=== PATIENT | female | born 1980 | race Caucasian/White ===

== ENCOUNTER 2016-10-14 14:06 | Emergency (ER) | payer SELFPAY ==
[2016-10-14 15:07] VITALS: BP 119/64; PULSE 96; RESP 18; TEMP 98.4
[2016-10-14] MEDS ORDERED: HYDROcodone/APAP 5-325MG 1 EACH TAB PO STA (15:45)
--- NOTE | 2016-10-14 15:50 | ED ---
General Adult HPI - General Chief complaint: Back Pain/Injury Stated complaint: back and hand pain/injury Time Seen by Provider: 10/14/16 15:01 Source: patient, RN notes reviewed Mode of arrival: ambulatory Limitations: no limitations - History of Present Illness Initial comments: This is a 36-year-old female who presents with left-sided lower back pain and left hand pain. Patient states last night she was moving a dresser and when she bent over she felt a pain in her lower back. Patient states this caused her to drop the dresser onto her left hand. Patient reports increased swelling to the left hand and wrist and pain with movement. Patient denies any numbness/ tingling or weakness to the left hand or to bilateral lower extremities. Patient denies any change in bowel or bladder function or loss of sensation to the saddle area. Patient is able to ambulate. Patient states she's been taking Motrin for the pain but this has not helped. Patient denies any chance of being . Patient denies any recent fever, chills, shortness breath, chest pain, abdominal pain, nausea/vomiting/diarrhea, hematuria, headache, or visual changes, or any other complaints. - Related Data Previous Rx's Medication Instructions Recorded HYDROcodone/APAP 5-325MG [[place] 1 tab PO Q6HR #12 tab 10/14/16 5-325] Allergies Allergy/AdvReac Type Severity Reaction Status Date / Time sulfamethoxazole Allergy Swelling Verified 10/14/16 15:12 [From Bactrim] trimethoprim [From Bactrim] Allergy Swelling Verified 10/14/16 15:12 acetaminophen AdvReac SKIN FEELS Verified 10/14/16 15:12 [From Tylenol-Codeine #3] LIKE IT IS ON FIRE codeine AdvReac SKIN FEELS Verified 10/14/16 15:12 [From Tylenol-Codeine #3] LIKE IT IS ON FIRE tramadol AdvReac Nausea & Verified 10/14/16 15:12 Vomiting Review of Systems ROS Statement: Those systems with pertinent positive or pertinent negative responses have been documented in the HPI. ROS Other: All systems not noted in ROS Statement are negative. Past Medical History Past Medical History: No Reported History History of Any Multi-Drug Resistant Organisms: None Reported Past Surgical History: Tubal Ligation Past Psychological History: No Psychological Hx Reported Smoking Status: Never smoker Past Alcohol Use History: None Reported Past Drug Use History: None Reported General Exam - General Exam Comments Initial Comments: General: The patient is awake and alert, in no distress, and does not appear acutely ill. Neck: The neck is supple, there is no tenderness or JVD. Cardiovascular: There is a regular rate and rhythm. No murmur, rub or gallop is appreciated. Respiratory: Lungs are clear to auscultation, respirations are non-labored, breath sounds are equal. No wheezes, stridor, rales, or rhonchi. Musculoskeletal: There is tenderness to palpation over the left side paraspinal muscles of the lumbar spine, there is tenderness to palpation to the radial aspect of the left wrist and to the medial volar aspect of the left wrist. Patient also has tenderness over the first MCP joint of the left hand. Patient has localized swelling and ecchymosis to the radial aspect of the left wrist and left hand. Patient has tenderness to the anatomical snuffbox of the left wrist. Patient has full range of motion, strength 5/5 in Sensation intact. Radial pulses are 2+ bilaterally and capillary refill is normal at less than 2 seconds. Neurological: A&O x 3. CN II-XII intact, There are no obvious motor or sensory deficits. Coordination appears grossly intact. Speech is normal. Skin: There is swelling and ecchymosis to the radial aspect of the left wrist and left hand. Skin is warm and dry and no rashes or lesions are noted. Psychiatric: Normal mood and affect. Limitations: no limitations Course Vital Signs 10/14/16 15:00 Temperature 98.4 F Pulse Rate 96 Respiratory 18 Rate Blood Pressure 119/64 O2 Sat by Pulse 98 Oximetry Medical Decision Making - Medical Decision Making Physical 36-year-old female presents with left-sided lower back pain and left hand pain. On physical exam patient is neurologically intact. There is tenderness to palpation over the left side paraspinal muscles of the lumbar spine, there is tenderness to palpation to the radial aspect of the left wrist and ti the medial volar aspect of the left wrist. Patient has tenderness to the anatomical snuffbox of the left upper extremity. Patient also has tenderness over the first MCP joint of the left hand. Patient has localized swelling and ecchymosis to the radial aspect of the left wrist and left hand. Patient has full range of motion, strength 5/5 in Sensation intact. Radial pulses are 2+ bilaterally and capillary refill is normal at less than 2 seconds. Xrays of the left hand and left wrist were done and reviewed showing: X-ray left hand and x-ray left wrist: There is no acute fracture or dislocation of the left wrist or hand. Reported by Dr. Lake. Due to patient's pain, swelling and ecchymosis in the anatomical snuffbox was splinted and I discussed repeat x-ray in 7-10 days to rule out occult fracture.A short arm volar splint to the left upper extremity was placed. Neurovascular was rechecked and is intact. Patient was instructed to stay non-weightbearing to the left upper extremity. Patient was instructed to rest, ice, elevate and keep splint on until follow-up with orthopedics. Patient Discussed with patient to follow- up with orthopedics in the next 1-2 days. I discussed return parameters. I discussed Motrin and heating pad for the patient's back pain. I discussed return parameters for this as well. Please return to the [facility] symptoms worsen or for any other concerns. Patient was receptive to this plan and patient will be discharged home. Disposition Clinical Impression: Mechanical back pain, Muscle spasm of back, Left wrist pain Disposition: HOME SELF-CARE Condition: Good Instructions: Acute Low Back Pain (ED), Wrist Injury (ED) Additional Instructions: Please continue Motrin and heating pads for back pain. Please use [place] for breakthrough pain.Please rest, ice, elevate, and use splint for support. Please stay nonweightbearing to the left upper extremity. Please follow up with orthopedics in the next 2-3 days. Please follow-up with your primary care physician in the next 1-2 days. Please return to the [facility] for any worsening symptoms or for any further concerns. Prescriptions: HYDROcodone/APAP 5-325MG [[place] 5-325] 1 tab PO Q6HR #12 tab Referrals: None,Stated [Primary Care Provider] - 1-2 days Consuelo Menendez MD [STAFF PHYSICIAN] - 1-2 days Tho Santiago MD [STAFF PHYSICIAN] - 1-2 days Time of Disposition: 16:31
--- NOTE | 2016-10-14 15:57 | XR ---
EXAMINATION TYPE: XR wrist complete LT, XR hand complete LT DATE OF EXAM: 10/14/2016 3:53 PM CLINICAL HISTORY: Crushing injury with pain. TECHNIQUE: Frontal, lateral and oblique images of the left hand and hand are obtained. Additional fo urth scaphoid view of left wrist is acquired. COMPARISON: None. FINDINGS: There is no acute fracture or dislocation in the left wrist. The carpal joint spaces are pr eserved. Overlying soft tissue is unremarkable. There is no acute fracture/dislocation evident in the left hand. The joint spaces in the left hand ap pear within normal limits. The overlying soft tissue appears unremarkable. IMPRESSION: There is no acute fracture or dislocation in the left wrist or hand.
== END 2016-10-14 16:35 | disposition home or self-care (01) ==
LOC: EC 14:06
DX: S60.212A Contusion of left wrist, initial encounter (principal); M62.830 Muscle spasm of back; Z88.2 Allergy status to sulfonamides; Z88.6 Allergy status to analgesic agent; Z88.5 Allergy status to narcotic agent; W20.8XXA Other cause of strike by thrown, projected or falling object, initial encounter
CPT/HCPCS: 29125; 99283